=== PATIENT | male | born 1955 | race Caucasian/White ===

== ENCOUNTER → 2021-10-24 14:16 | Outpatient (BNVA) | payer MEDICARE, SELFPAY | PROVIDERS: Family Provider Nurse Practitioner Family; PCP Nurse Practitioner Family; Visit Provider Thoracic Surgery (Cardiothoracic Vascular Surgery) | DX: M79.652 Pain in left thigh (principal) | CPT/HCPCS: 99203 ==

== ENCOUNTER → 2021-11-07 10:33 | Outpatient (BNVA) | payer MEDICARE, SELFPAY | PROVIDERS: Family Provider Nurse Practitioner Family; PCP Nurse Practitioner Family; Visit Provider Orthopaedic Surgery | DX: M48.062 Spinal stenosis, lumbar region with neurogenic claudication (principal) | CPT/HCPCS: 72110; 99204 ==

== ENCOUNTER → 2021-11-20 08:56 | Outpatient (BNVA) | payer MEDICARE, SELFPAY | PROVIDERS: Family Provider Nurse Practitioner Family; PCP Nurse Practitioner Family; Visit Provider Anesthesiology Pain Medicine | DX: M48.062 Spinal stenosis, lumbar region with neurogenic claudication (principal); M47.816 Spondylosis without myelopathy or radiculopathy, lumbar region; M51.16 Intervertebral disc disorders with radiculopathy, lumbar region; M79.652 Pain in left thigh; M79.604 Pain in right leg; M79.605 Pain in left leg; Z87.891 Personal history of nicotine dependence | CPT/HCPCS: 99205 ==

== ENCOUNTER 2021-12-11 11:07 | Day surgery (SDC) | payer MEDICARE, SELFPAY ==
[2021-12-09 09:21] VITALS: BMI 26.7
--- NOTE | 2021-12-09 09:33 | ECG_ITS ---
[facility] Test Date: 2021-12-09 Pat Name: Ed Wall Department: Room: Gender: Male Billet Straightener: : 1955 Requested By: Zulema Galvan Order Number: [id number] Josh MD: Karan Gonzales M.D. Measurements Intervals Berthold Rate: 71 P: 67 NV: 153 QRS: 22 QRSD: 94 T: 46 QT: 380 QTc: 413 Interpretive Statements SINUS RHYTHM POSSIBLE RIGHT VENTRICULAR CONDUCTION DELAY [RSR (QR) IN V1/V2] Compared to ECG 11/25/2017 13:11:42 No significant changes Electronically Signed On 12-10-2021 21:18:52 CDT by Karan Gonzales M.D. [email or web address]
--- NOTE | 2021-12-09 16:08 | P.ANESASSM_ITS ---
Pre-Anesthetic Assessment Height/Weight: Height 1.8 m Weight 87.09 kg Operation Date: 12/16/21 07:00 Proposed Procedures p Lumbar Spine Decompression L3/4 L4/5 75663/64302/M48.062(Not Applicable) - Humberto Carolina DO Familial anesthetic complications: None Was Beta Thom taken within 24 hours: N/A Was Clonidine taken within 24 hours: N/A Social No alcohol and No tobacco Exam alert, oriented x 3, clear to auscultation bilaterally and regular rate & rhythm Airway Submandibular: within normal limits Cervical ROM: within normal limits Mallampati: Class I Dentition: full History/ROS No significant complaints Pulmonary None reported CV/HEM DLD Renal carcionoma s/p nephrectomy Port a cath in place Hepatic None reported GI None reported Metabolic Thyroid Disease Musc/skel Lower Back Pain and Osteoarthritis/DJD Neurogenic claudication Neuropsych Neuropathy Anesthetic Plan ASA status: 2 Anesthesia: Anesthesia Evaluation and General Other: We discussed risk and benefits of general anesthesia including PONV, sore throat (sometimes severe), corneal abrasion, positioning and peripheral nerve injuries, life threatening allergic reaction, post operative ICU admission requiring prolonged intubation, stroke, heart attack, , and rare incidences of recall. Patient consents to proceed with general anesthesia. Risk of > 500 ml blood loss (7ml/kg in children): No Medications/Allergies Home Medications Medication Instructions Recorded Confirmed Last Taken Type simvastatin 40 mg tablet 40 mg PO DAILY 10/24/21 12/09/21 Unknown History levothyroxine 125 mcg tablet 125 mcg PO DAILY 12/09/21 12/09/21 Unknown History Allergies Allergy/AdvReac Type Severity Reaction Status Date / Time No Known Allergies Allergy Verified 11/20/21 10:05 [facility] Anesthesia Family History Brother CAD (coronary artery disease) Sister Cancer Denies family history of Diabetes Hypertension Stroke Social History Smoking and tobacco status: former smoker Quit status (tobacco): has quit using tobacco Former quit date comment: 2 PPD x 45 yrs Second hand smoke exposure: Yes Alcohol intake: never Adopted: No Lives independently: Yes Household members: spouse Housing: House Marital status: Current occupational status: retired 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
--- NOTE | 2021-12-11 | XR_ITS ---
WS: [id number] Lumbar spine, C-arm fluoroscopy, 12/11/2021 Clinical Data: decompression l3/l4 l4/l5 decompression Comparison: None. Findings: Dr. Carolina performed an L3-4 and L4-5 lumbar decompression. XR/XR lumbar spine 1V [id number] Impression: Lumbar decompression.
--- NOTE | 2021-12-11 | SCC_ITS ---
Procedure done: 1. L3/4 laminectomy with partial facetectomy 2. L4/5 laminectomy with partial facetetomy 16.7 seconds of fluoroscopic guidance, for a cumulative dose of 6.76 mGy, was provided to Dr. Carolina by the radiology department. C-arm images of the lumbar spine were saved for the patient's permanent record. [facility]
[2021-12-11 11:58] VITALS: BP 129/82; PULSE 73; RESP 16; TEMP 36.4; O2SAT 98
[2021-12-11] MEDS: sodium chloride 0.9% 1,000 ML 30 ML IV (12:12)
--- NOTE | 2021-12-11 12:28 | PM.HP ---
Providers/Chief Complaint Primary Care Provider: LINDA Khanna Chief Complaint: L3/4 L4/5 DECOMPRESSION [id number] / m48.062 History of Present Illness Bryant Wall is a 65 year old male patient here for evaluation of lower back pain and left hip pain. He rates his pain 10 at todays visit. He states he has had pain over the years that has gradually gotten worse. He has a history of previous right hip replacement. He explains his lower back pain radiates into his left hip, and left anterior leg. He has tried injections in the past with no relief. Chief Complaint:lower back pain Onset: Years ago, from work Duration:Constant, daily Characteristics:Aching, stabbing, cramping Severity: 12/18 Location:Lumbar region, Left hip, anterior left leg Radiating symptoms:radiates into left hip/anterior left leg Aggravating factors:any movement/activity for extended periods at a time. Alleviating factors:Leaning back in recliner Neuro deficits: Reports numbness, tingling in right leg. Reports weakness in both legs. Denies incontinence of bowel/bladder, saddle anesthesia. Prior tx:?hx of right hip replacement, Injection in lower back and right hip. Review of Systems General: Reports: 10 or more systems reviewed and unremarkable except in HPI and below Const: Reports: body aches, fatigue and malaise; Denies: fever(s) Eyes: Denies: change in vision or eye discharge ENMT: Denies: throat pain or uvular edema Card: Denies: chest pain or palpitations Resp: Denies: dyspnea or productive cough GI: Denies: nausea or vomiting : Denies: urinary incontinence Musc: Reports: back pain and extremity pain Skin/Breast: Denies: rash or pruritus Neuro: Reports: numbness in extremities and weakness in extremities Psych: Denies: anxiety or depression Endo: Denies: polyuria Doug/Lymph: Denies: easy bruising All/Imm: Denies: facial swelling Medications/Allergies Home Medications Medication Instructions Recorded Confirmed Last Taken Type simvastatin 40 mg tablet 40 mg PO DAILY 10/24/21 12/11/21 12/10/21 History levothyroxine 125 mcg tablet 125 mcg PO DAILY 12/09/21 12/11/21 12/11/21 History Allergies Allergy/AdvReac Type Severity Reaction Status Date / Time No Known Allergies Allergy Verified 11/20/21 10:05 PFSH Acute PFSH: Family History Brother CAD (coronary artery disease) Sister Cancer Denies family history of Diabetes Hypertension Stroke Social History Smoking and tobacco status: former smoker Quit status (tobacco): has quit using tobacco Former quit date comment: 2 PPD x 45 yrs Second hand smoke exposure: Yes Alcohol intake: never Adopted: No Lives independently: Yes Household members: spouse Housing: House Marital status: 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 GENERAL: Patient in no acute distress. CARDIAC: Regular rate and rhythm. CHEST: Normal inspiratory effort, normal respiratory rate. ABDOMEN: Soft and nontender. SKIN: Clear, warm and intact. NEURO?PSYCH: The patient is alert and oriented to person, place and time. Sensorv /SILT Motor StrengthShoulder abduction C5 5/5Wrist extension C6 5/5Elbow extension C7 5/5Hand Cold Press Loader C8 5/5Finger abduction T15/5 Radial/ Ulnar/ Median n intact LowerSensory (SILT)Motor StrengthHin flexion L2/3Ant/inner thigh 5/5Hip adduction L2/3 5/5Knee extension L4 Lat thigh, 5/5Toe dorsiflexion L5 5/5Ankle dorsiflexion L5/ S82Kvgebvt flexion S1 5/5 DTRBleeps 2+Triceps 2+Brachioradialis 2+Patellar 2+Achilles 2+ MUSCULOSKELETAL: [] UPPEREXTREMITIES: The patient had full active ROM in fingers, wrist, elbow, and shoulder. The patient demonstrated ability to fully flex/extend/abduct/adduct fingers, make ok sign, cross 2nd/3rd digits, extend 1st digit fully.. Radial pulse 2+, CR<2 seconds. LOWER EXTREMITIES: Pt has full, active ROM of toes, ankle, knee, and hip. Dorsalis pedis/posterior tibialis pulses 2+, CR<2 seconds. SPINE: Skin warm, dry, intact. A&P Assessment and plan (1) Lumbar stenosis with neurogenic claudication: L3/4 and L4/5 Left side laminectomy with partial facetectomy Status: Acute Attestations Medical Necessity Statement*: failed conservative tx Coding Level of Care Code Acute Resource Efficiency Manager for Chg Fwd Diagnoses Lumbar stenosis with neurogenic claudication M48.062
--- NOTE | 2021-12-11 12:58 | P.ANESUD_ITS ---
Pre-Anesthetic Update Pre-Anesthetic Assessment: Date of Surgery/Procedure: 12/11/21 Preop Cierra gnosis: Lumbar radiculopathy Proposed Procedure: Operation Date: 12/11/21 12:45 Proposed Procedures p Lumbar Spine Decompression L3/4 L4/5 85012/90716/M48.062(Not Applicable) - Humberto Carolina, DO Any changes to Pre-Anesthetic Assessment?: No Last Intake: Intake Last Liquid Date 12/10/21 Last Liquid Time 22:00 Last Solid Date 12/10/21 Last Solid Time 22:00 Vitals: Temperature 97.6 F 12/11/21 11:58 Temperature Source Temporal Artery S can 12/11/21 11:58 Pulse Rate 73 12/11/21 11:58 Respiratory Rate 16 12/11/21 11:58 Blood Pressure 129/82 12/11/21 11:58 Blood Pressure Margie n 97 12/11/21 11:58 Pulse Oximetry 98 12/11/21 11:58 Oxygen Delivery Me thod 12/11/21 11:58 Exam: Pre-Anes Outpt Exam: alert, oriented x 3, clear to auscultation bilaterally and regular rate & rhythm Cardiac Studies: No Data to Display
[2021-12-11] MEDS: ceFAZolin 2,000 MG in sodium chloride 0.9% (plus) 50 ML 100 MG IV (14:15)
[2021-12-11 15:26] VITALS: BP 132/82; PULSE 83; RESP 14; TEMP 36.1; O2SAT 99
[2021-12-11 15:31] VITALS: BP 126/75; PULSE 77; RESP 16; O2SAT 100
--- NOTE | 2021-12-11 15:39 | P.OP_ITS ---
Operative Report Date of procedure: December 11, 2021 Pre-op diagnosis: Preop Diagnosis Lumbar radiculopathy Post-op diagnosis: same Procedure done: 1. L3/4 laminectomy with partial facetectomy 2. L4/5 laminectomy with partial facetetomy Surgeon: Humberto Carolina Professor Of Poultry Science: Ulisses Win Professor Of Poultry Science: The manager surgical, Ulisses Win, PAC was needed for his expertise under the microscope. He was important and necessary throughout the procedure to complete in a safe and timely manner. He assisted with patient positioning prepping and draping tissue retraction suctioning of the operative field protection of the dural sac and tissue closure Estimated blood loss (mL): 5 Procedure: 1. L3/4 laminectomy with partial facetectomy 2. L4/5 laminectomy with partial facetetomy Patient is brought to the operative suite. After undergoing anesthesia they are placed in the prone position. All areas of impingement are well padded. Patient is then prepped and draped in the normal sterile fashion. A skin incision is made over the L4-5 level. This is confirmed under c-arm guidance. A series of dilators are passed and the tubular retractor is docked on the L4 lamina. A bovie is used to clear the soft tissue off the lamina and the L 4/5 facet joint. A high speed hayden is then used to perform the laminectomy and take down the medial aspect of the L 4/5 facet joint. A kerrison rongeure was then used to take down the remaining lamina and smooth the edge of the laminectomy up to the point where the ligamentum flavum attaches. Attention was then brought to the medial aspect of the facet joint. The remaining medial aspect of the superior and inferior aspect of the facet joint were taken down with the kerrison from the pedicle of L4 to L 5. The facet joint had significant hypertrophy. Attention was then brought to the Ligamentum Flavum. The ligament was taken down from the lamina of L4 to L5 and out medially to the remaining facet joint. The ligament was thick. The dura was then exposed. The dura was in good repair. The L4 nerve was then traced with a curette out the L4/5 foramen and found to be adequately decompressed. The L5 nerve was traced with a curette around the L5 pedicle. The lateral recess was opened with a kerrison helping to further decompress the L5 nerve. A skin incision is made over the L3/4 level. This is confirmed under c-arm guidance. A series of dilators are passed and the tubular retractor is docked on the L3 lamina. A bovie is used to clear the soft tissue off the lamina and the L 3/4 facet joint. A high speed hayden is then used to perform the laminectomy and take down the medial aspect of the L 3/4 facet joint. A kerrison rongeure was then used to take down the remaining lamina and smooth the edge of the laminectomy up to the point where the ligamentum flavum attaches. Attention was then brought to the medial aspect of the facet joint. The remaining medial aspect of the superior and inferior aspect of the facet joint were taken down with the kerrison from the pedicle of L3 to L 4. The facet joint had significant hypertrophy. Attention was then brought to the Ligamentum Flavum. The ligament was taken down from the lamina of L3 to L4 and out medially to the remaining facet joint. The ligament was thick. The dura was then exposed. The dura was in good repair. The L3 nerve was then traced with a curette out the L3/4 foramen and found to be adequately decompressed. The L4 nerve was traced with a curette around the L4 pedicle. The lateral recess was opened with a kerrison helping to further decompress the L4 nerve. Wound is then irrigated copiously with saline and surgiflo is used to stop any bleeding. The tubular retractor is removed and the wound is closed with vicryl and monocryl suture. Glue is then used to protect the wound. A sterile dressing is then placed. Patient was then placed in the supine position and transferred to the PACU in stable condition.
[2021-12-11 15:41] VITALS: BP 132/78; PULSE 89; RESP 18; TEMP 36.1; O2SAT 96
[2021-12-11 16:00] VITALS: BP 110/75; PULSE 77; RESP 18; TEMP 36.3; O2SAT 98
== END 2021-12-11 16:30 | disposition home or self-care (01) ==
PROVIDERS: PCP Nurse Practitioner Family; Visit Provider Orthopaedic Surgery
PROC: (CPT 63005; principal; 2021-12-11 12:45)
DX: M48.062 Spinal stenosis, lumbar region with neurogenic claudication (principal); Z85.528 Personal history of other malignant neoplasm of kidney; Z90.5 Acquired absence of kidney; Z87.891 Personal history of nicotine dependence
CPT/HCPCS: 63047; 63048; 72020; 76000; 93005; J1100; J2405; J2704; J2710; J3010; J3490; J7030

== ENCOUNTER → 2022-01-02 12:59 | Outpatient (BNVA) | payer MEDICARE, SELFPAY | PROVIDERS: PCP Nurse Practitioner Family; Visit Provider Orthopaedic Surgery | DX: Z47.89 Encounter for other orthopedic aftercare (principal) | CPT/HCPCS: 99024 ==

== ENCOUNTER → 2022-02-06 08:06 | Outpatient (BNVA) | payer MEDICARE, SELFPAY | PROVIDERS: PCP Nurse Practitioner Family; Visit Provider Orthopaedic Surgery | DX: Z47.89 Encounter for other orthopedic aftercare (principal) | CPT/HCPCS: 99024 ==

== ENCOUNTER 2022-03-19 06:00 | Outpatient (RCR) | payer MEDICARE, SELFPAY | END 2022-04-09 23:59 | disposition home or self-care (01) | LOC: TPT 06:00 | PROVIDERS: PCP Nurse Practitioner Family; Visit Provider Orthopaedic Surgery | DX: Z98.890 Other specified postprocedural states (principal) | CPT/HCPCS: 97110; 97163 ==

== ENCOUNTER → 2022-03-20 08:02 | Outpatient (BNVA) | payer MEDICARE, SELFPAY | PROVIDERS: PCP Nurse Practitioner Family; Visit Provider Orthopaedic Surgery | DX: M48.062 Spinal stenosis, lumbar region with neurogenic claudication (principal) | CPT/HCPCS: 99213 ==

== ENCOUNTER 2022-04-10 06:00 | Outpatient (RCR) | payer MEDICARE, SELFPAY | END 2022-05-06 23:59 | disposition home or self-care (01) | LOC: TPT 06:00 | PROVIDERS: PCP Nurse Practitioner Family; Visit Provider Orthopaedic Surgery | DX: Z98.890 Other specified postprocedural states (principal) | CPT/HCPCS: 97110; 97140 ==

== ENCOUNTER 2022-04-30 01:00 | Outpatient (CLI) | payer MEDICARE, SELFPAY | END 2022-04-30 23:00 | LOC: RAD 06-10 15:19 | PROVIDERS: PCP Nurse Practitioner Family; Visit Provider Registered Nurse General Practice | DX: M16.12 Unilateral primary osteoarthritis, left hip (principal); M79.652 Pain in left thigh | CPT/HCPCS: 73502; 99214 ==

== ENCOUNTER 2022-04-30 11:27 | Outpatient (CLI) | payer MEDICARE, SELFPAY ==
--- NOTE | 2022-04-30 11:35 | CT_ITS ---
WS: [id number] CT CHEST, ABDOMEN AND PELVIS NONCONTRAST HISTORY: MALIGNANT NEOPLASM OF LEFT Kidney, except RENAL PELVIS TECHNIQUE: Contiguous 5 mm axial imaging performed through the chest, abdomen and pelvis without IV c ontrast, oral contrast has been provided. Coronal and sagittal reformats chest. Coronal and sagittal reformats through the abdomen and pelvis. All CT scans at [facility] use at least one of thes e dose optimization techniques: automated exposure control; mA and/or kV adjustment per patient size (includes targeted exams where dose is matched to clinical indication); or iterative reconstruction. CONTRAST: None DLP: 1327.16 mGy.cm COMPARISON: Chest CT 01/25/[address]: Hyperinflated lungs. No pulmonary nodule or mass. Intrapulmonary lymph node along the LEFT major fissure unchanged since 2018 and measures 3 mm. Mild atherosclerosis aorta. No aneurysm. Normal size pulmonary artery. No adenopathy. Abdomen CT: Unenhanced imaging of the liver, spleen and gallbladder are negative for acute process. T here are a few splenic granulomata. 2 mm calcification in the neck of the gallbladder. No adjacent in flammation or entrapment. Normal pancreas. No adrenal mass. Atherosclerosis aorta with no aneurysm. Prior LEFT nephrectomy. No recurrent mass in the renal bed. RIGHT kidney normal size measuring 11.1 c m. There are several small parapelvic cysts in the central kidney. No obstruction or calyceal dilatat ion. No mass identified on this unenhanced exam. Negative stomach. No small bowel obstruction. Normal appendix. A few scattered diverticula in the dis sis colon without acute diverticulitis. No adenopathy or ascites. Pelvic CT: Well-distended urinary bladder. Prostate gland calcifications. No free fluid or adenopathy in the pelvis. RIGHT hip arthroplasty. Lumbar scoliosis. CT/[place] [id number] IMPRESSION: 1. Status post LEFT nephrectomy. 2. No recurrent mass in the renal bed. 3. Unenhanced imaging of the RIGHT kidney is negative. No obstruction or mass. 4. 2 mm calcification the neck of the gallbladder. 5. Chronic emphysema. No metastatic pulmonary nodule or mass.
[2022-04-30] MEDS: iohexol 350 mg/mL 500 mL Btl (per mL) PO (11:46)
[2022-04-30 12:29] LABS: Basophils % 0.3 %; Eosinophils % 0.5 %; Hematocrit 45.5 % (42.0-52.0); Lymphocytes # 1.2 10^3/uL (0.8-4.8); Lymphocytes % 15.9 %; Mean Corpuscular Hemoglobin 31.3 pg (28.0-34.0); Mean Platelet Volume 9.1 fL (7.4-10.4); Monocytes # 0.5 10^3/uL (0.2-0.9); Monocytes % 6.6 %; Neutrophils # 5.84 10^3/uL (1.8-7.7); Neutrophils % 76.2 %; Nucleated Red Blood Cells % 0 %; Platelet Count 315 10^3/cmm (130-400); Red Blood Count 4.79 10^6/uL (4.1-5.3); Red Cell Distribution Width 13.3 % (12.1-15.1); White Blood Count 7.7 10^3/uL (4.0-10.0)
[2022-04-30 12:54] LABS: Alanine Aminotransferase 10 U/L (0-41); Albumin Level 4.2 g/dL (3.5-5.2); Alkaline Phosphatase 102 U/L (40-130); Anion Gap 13.5 (5-19); Aspartate Amino Transferase 13 U/L (0-40); Blood Urea Nitrogen 18 mg/dL (8-23); Calcium 9.8 mg/dL (8.5-10.5); Carbon Dioxide 27 mmol/L (22-29); Chloride 101 mmol/L (98-107); Globulin 2.7 g/dL (1.3-4.6); Glomerular Filtration Rate 60.4 mL/min (90-130); Glucose 107 mg/dL (65-115); Osmolality Calculated 286 mOsm/kg (285-295); Potassium 4.5 mmol/L (3.5-5.1); Sodium 137 mmol/L (136-145); Total Bilirubin 0.3 mg/dL (0.15-1.2); Total Protein 6.9 g/dL (6.6-8.7)
== END 2022-04-30 11:28 | disposition home or self-care (01) ==
PROVIDERS: PCP Nurse Practitioner Family; Visit Provider Internal Medicine
DX: C64.2 Malignant neoplasm of left kidney, except renal pelvis (principal); Z90.5 Acquired absence of kidney; K82.8 Other specified diseases of gallbladder; J43.9 Emphysema, unspecified
CPT/HCPCS: 36415; 71250; 74176; 80053; 85025; Q9967

== ENCOUNTER 2022-11-10 12:41 | Outpatient (CLI) | payer MEDICARE, SELFPAY ==
--- NOTE | 2022-11-10 12:52 | CT_ITS ---
WS: [id number] CT CHEST, ABDOMEN AND PELVIS NONCONTRAST. HISTORY: GROSS HEMATURIA, history of LEFT renal cancer. TECHNIQUE: Contiguous 5 mm axial imaging performed through the chest, abdomen and pelvis without IV c ontrast, oral contrast has not been provided. Coronal and sagittal reformats chest. Coronal and sagit sis reformats through the abdomen and pelvis. All CT scans at [facility] use at least one of these dose optimization techniques: automated exposure control; mA and/or kV adjustment per patient s ize (includes targeted exams where dose is matched to clinical indication); or iterative reconstructi on. CONTRAST: None DLP: 865.36 mGy.cm COMPARISON: CT 04/30/2022. Chest CT: No pulmonary mass or nodule. There are a few scattered granulomata which are stable. No per icardial or pleural effusions. Mild atherosclerosis aorta. Normal size pulmonary artery. Suspect mode rate coronary artery calcification. Small hiatal hernia. No destructive rib lesions. Mild thoracic sp ondylosis. Abdomen CT: Unenhanced imaging of the visceral organs submitted. Liver is normal size. No mass or kavon e duct dilatation is evident. Normally distended gallbladder with cholelithiasis. No acute cholecysti tis. Normal spleen. No adrenal mass. Normal pancreas. Moderate atherosclerosis abdominal aorta with n o aneurysm. Prior LEFT nephrectomy. There is no recurrent mass in the renal bed. Normal size RIGHT kidney. Small parapelvic cysts. No renal mass or calcifications identified on this unenhanced study. Well-distended stomach. No small bowel obstruction. Diffuse constipation. Appendix is not identified. Moderate distal diverticular disease without acute diverticulitis. Pelvic CT: Normally distended urinary bladder. Portions of the bladder are obscured by significant be am hardening artifact secondary to bilateral hip prostheses. No free fluid. No adenopathy. Bilateral hip prostheses. Advanced degenerative rotoscoliosis lumbar spine with asymmetric disc space narrowing. CT/[place] [id number] IMPRESSION: 1. Status post LEFT nephrectomy. No recurrent mass in the renal bed. 2. Nonobstructed RIGHT kidney. No abnormality seen on this unenhanced exam. 3. No adenopathy. 4. Cholelithiasis without acute cholecystitis. 5. No pulmonary mass or pneumonia. 6. Portions of the urinary bladder are obscured by beam hardening artifact fro m the hip prostheses. Ultrasound evaluation may be helpful of the urinary bladd er if there is gross hematuria.
== END 2022-11-10 12:42 | disposition home or self-care (01) ==
PROVIDERS: PCP Internal Medicine; Visit Provider Internal Medicine
DX: K80.20 Calculus of gallbladder without cholecystitis without obstruction (principal); Z90.5 Acquired absence of kidney
CPT/HCPCS: 71250; 74176

== ENCOUNTER 2023-05-12 07:30 | Outpatient (CLI) | payer MEDICARE, SELFPAY ==
--- NOTE | 2023-05-12 07:40 | CTR_ITS ---
PROCEDURE INFORMATION: Exam: CT Chest Without Contrast; Diagnostic Exam date and time: 05/12/2023 9:03 AM Age: 67 years old Clinical indication: Condition or disease; Kidney, left; Other: Kidney cancer; Prior surgery; Surgery date: 6+ months; Surgery type: Left kidney, lymph nodes, bilat hips; Additional info: Malignant neoplasm of L kidney, except renal pelvis/hematuria TECHNIQUE: Imaging protocol: Diagnostic computed tomography of the chest without contrast. Radiation optimization: All CT scans at this facility use at least one of these dose optimization techniques: automated exposure control; mA and/or kV adjustment per patient size (includes targeted exams where dose is matched to clinical indication); or iterative reconstruction. COMPARISON: [place] [id number] 11/10/2022 1:10 PM RADIATION DOSE METRICS: Total DLP (mGy-cm): 832.09 FINDINGS: Thyroid: No significant thyroid pathology. Lungs: See Bones/joints finding. Pleural spaces: No pleural effusion. Single pleural calcification seen in the left lower chest inferomedially. No evidence of soft tissue nodule associated with this.Coronary artery calcifications. Heart: Unremarkable. No cardiomegaly. No pericardial effusion. Coronary arteries: See Pleural spaces finding. Lymph nodes: No enlarged nodes by criteria. Stable borderline sized AP window lymph nodes measuring up to 1 cm short axis. Vasculature: No abdominal aortic aneurysm. Bones/joints: Stable multangular 4 mm left perifissural nodule series 6, image 34 likely representing lymph node. Interval appearance of new areas ground-glass opacity the right lung apex posteriorly with component of a single 5 mm nodule within 1 of the ground-glass opacities on series 6, image 16. There is mild cylindrical bronchiectasis in the left lower lobe. No significant bony pathology. Soft tissues: See Pleural spaces finding. PROCEDURE INFORMATION: Exam: CT Abdomen And Pelvis Without Contrast Exam date and time: 05/12/2023 9:03 AM Age: 67 years old Clinical indication: Condition or disease; Kidney, left; Other: Kidney cancer; Prior surgery; Surgery date: 6+ months; Surgery type: Left kidney, lymph nodes, bilat hips; Additional info: Malignant neoplasm of L kidney, except renal pelvis/hematuria TECHNIQUE: Imaging protocol: Computed tomography of the abdomen and pelvis without contrast. Radiation optimization: All CT scans at this facility use at least one of these dose optimization techniques: automated exposure control; mA and/or kV adjustment per patient size (includes targeted exams where dose is matched to clinical indication); or iterative reconstruction. COMPARISON: [place] [id number] 11/10/2022 1:10 PM RADIATION DOSE METRICS: Total DLP (mGy-cm): 832.09 FINDINGS: Lungs: Visualized lung bases are free of significant pathology. Liver: Fatty change of the liver. Gallbladder and bile ducts: Cholelithiasis. No biliary dilatation. Pancreas: No significant pancreatic pathology. Spleen: No significant splenic pathology. Adrenal glands: No significant adrenal pathology. Kidneys and ureters: No significant right renal pathology. Prior left nephrectomy. Stomach and bowel: Large amount of colonic stool. Diverticulosis. Appendix: No appendiceal pathology evident. Intraperitoneal space: No ascites. Vasculature: No abdominal aortic aneurysm. Lymph nodes: No enlarged nodes by criteria. Urinary bladder: Bladder wall thickening. Reproductive: Moderate prostatomegaly. Bones/joints: Partial obscuration of pelvic anatomy by artifact rising from hip replacement. Moderate degenerative change present in the spine. No bony metastasis evident. Soft tissues: Small fat containing ventral hernia.Tiny fat containing umbilical hernia. Moderate right and small left fat containing inguinal hernias. CT/[place] chest [place] [id number] IMPRESSION: Interval appearance mild adjacent ground-glass opacities of the right upper lobe with single 5 mm nodule in a pattern most suggestive of inflammatory change. Given history of malignancy, three-month follow-up recommended for surveillance. IMPRESSION: 1. No evidence of abdominopelvic metastatic disease. 2. Stable minor findings including cholelithiasis and fatty infiltration of the liver.
[2023-05-12 09:11] LABS: Basophils % 0.4 %; Eosinophils # 0.1 10^3/uL (0.0-0.8); Eosinophils % 0.9 %; Hematocrit 46.8 % (37-53); Lymphocytes # 1.5 10^3/uL (0.8-4.8); Lymphocytes % 14.6 %; Mean Corpuscular HGB Conc 32.9 g/dL (30-55); Mean Corpuscular Hemoglobin 31.8 pg (27-33); Mean Corpuscular Volume 96.5 fl (82-101); Mean Platelet Volume 8.9 fL (7.4-10.4); Monocytes # 0.7 10^3/uL (0.2-0.9); Monocytes % 6.5 %; Neutrophils # 7.85 10^3/uL (1.8-7.7); Neutrophils % 77.1 %; Nucleated Red Blood Cells % 0 %; Platelet Count 281 10^3/cmm (157-399); Red Blood Count 4.85 10^6/uL (3.85-5.65); Red Cell Distribution Width 13.4 % (12.1-15.1); White Blood Count 10.17 10^3/uL (3.29-11.43)
[2023-05-12 09:25] LABS: Alanine Aminotransferase 15 U/L (0-41); Albumin Level 4.1 g/dL (3.5-5.2); Alkaline Phosphatase 99 U/L (40-130); Anion Gap 15.4 (5-19); Aspartate Amino Transferase 14 U/L (0-40); Blood Urea Nitrogen 22 mg/dL (8-23); Calcium 9.1 mg/dL (8.5-10.5); Carbon Dioxide 26 mmol/L (22-29); Chloride 100 mmol/L (98-107); Globulin 3.6 g/dL (1.3-4.6); Glomerular Filtration Rate 60.2 mL/min (90-130); Glucose 113 mg/dL (65-115); Osmolality Calculated 288 mOsm/kg (285-295); Potassium 4.4 mmol/L (3.5-5.1); Sodium 137 mmol/L (136-145); Total Bilirubin 0.5 mg/dL (0.15-1.2); Total Protein 7.7 g/dL (6.6-8.7)
== END 2023-05-12 07:31 | disposition home or self-care (01) ==
PROVIDERS: PCP Internal Medicine; Visit Provider Internal Medicine
DX: C64.2 Malignant neoplasm of left kidney, except renal pelvis (principal); R31.0 Gross hematuria; K80.20 Calculus of gallbladder without cholecystitis without obstruction; K76.0 Fatty (change of) liver, not elsewhere classified
CPT/HCPCS: 36415; 71250; 74176; 80053; 85025

== ENCOUNTER 2023-08-11 11:19 | Outpatient (CLI) | payer MEDICARE, SELFPAY ==
--- NOTE | 2023-08-11 11:30 | CTR_ITS ---
PROCEDURE INFORMATION: Exam: CT Chest Without Contrast; Diagnostic Exam date and time: 08/11/2023 12:18 PM Age: 67 years old Clinical indication: Condition or disease; Other: Kidney cancer; Prior surgery; Surgery date: 6+ months; Surgery type: Bilat hip, left kidney; Additional info: Gross hematuria/malignant neoplasm of L kidney L renal pel TECHNIQUE: Imaging protocol: Diagnostic computed tomography of the chest without contrast. Radiation optimization: All CT scans at this facility use at least one of these dose optimization techniques: automated exposure control; mA and/or kV adjustment per patient size (includes targeted exams where dose is matched to clinical indication); or iterative reconstruction. COMPARISON: [place] [id number] 05/12/2023 9:03 AM RADIATION DOSE METRICS: Total DLP (mGy-cm): 910.18 FINDINGS: Thyroid: No significant thyroid pathology. Lungs: Calcified pulmonary granulomata are present. Near-complete interval resolution right apical ground-glass opacities seen on the prior exam with minimal residual abnormality currently seen on series 5, image 13. Interval resolution of right apical nodule seen on prior study. Interval appearance of a subtle area of clustered micronodularity and ground-glass at the left lung apex on series 5 images 9 through 12. Stable 4 mm left perifissural nodule on series 5, image 33 most likely representing lymph node. Mild cylindrical bronchiectasis left lower lobe again seen. Stable solitary subpleural calcification left lower chest series 5, image 57. Pleural spaces: No pleural effusion. Heart: Unremarkable. No cardiomegaly. No pericardial effusion. Coronary arteries: Coronary artery calcifications. Lymph nodes: Stable borderline sized AP window lymph node measuring up to 1 cm short axis; no enlarged nodes by criteria. Vasculature: No evidence of thoracic aortic aneurysm. Bones/joints: Mild degenerative change present in the spine. No bony metastasis evident. Soft tissues: Unremarkable. PROCEDURE INFORMATION: Exam: CT Abdomen And Pelvis Without Contrast Exam date and time: 08/11/2023 12:18 PM Age: 67 years old Clinical indication: Condition or disease; Other: Kidney cancer; Prior surgery; Surgery date: 6+ months; Surgery type: Bilat hip, left kidney; Additional info: Gross hematuria/malignant neoplasm of L kidney L renal pel TECHNIQUE: Imaging protocol: Computed tomography of the abdomen and pelvis without contrast. Radiation optimization: All CT scans at this facility use at least one of these dose optimization techniques: automated exposure control; mA and/or kV adjustment per patient size (includes targeted exams where dose is matched to clinical indication); or iterative reconstruction. COMPARISON: [place] [id number] 05/12/2023 9:03 AM RADIATION DOSE METRICS: Total DLP (mGy-cm): 910.18 FINDINGS: Lungs: Visualized lung bases are free of significant pathology. Liver: No significant liver pathology. Gallbladder and bile ducts: Cholelithiasis. No biliary dilatation. Pancreas: No significant pancreatic pathology. Spleen: No significant splenic pathology. Adrenal glands: No significant adrenal pathology. Kidneys and ureters: Right kidney remarkable for unchanged parapelvic cysts. Prior left nephrectomy. No residual or recurrent neoplasm left renal fossa. Stomach and bowel: No significant pathology. Appendix: Appendix within normal limits. Intraperitoneal space: No ascites. Vasculature: No abdominal aortic aneurysm. Lymph nodes: No evidence of lymphadenopathy. Urinary bladder: Mild bladder wall thickening. Reproductive: Moderate prostatomegaly. Bones/joints: Partial obscuration of pelvic anatomy by artifact rising from bilateral hip replacements. Moderate degenerative change present in the spine. Soft tissues: Small fat containing ventral hernia. Moderate fat containing right inguinal hernia. Small fat containing left inguinal hernia. CT/[place] [id number] IMPRESSION: 1. Interval resolution of right apical 5 mm nodule and right apical ground-glass opacities. Interval appearance of new clustered left apical micronodularity and mild ground-glass opacity in a pattern most suggestive of infectious/inflammatory pathology. Although felt to be unlikely related metastatic disease, three-month follow-up could be performed for surveillance. 2. Other minor thoracic findings are stable as detailed above. IMPRESSION: No evidence of recurrent neoplasm or significant interval change. Stable minor findings including cholelithiasis as described above.
== END 2023-08-11 11:20 | disposition home or self-care (01) ==
LOC: RAD 11:20
PROVIDERS: PCP Internal Medicine; Visit Provider Internal Medicine
DX: R31.0 Gross hematuria (principal); C64.2 Malignant neoplasm of left kidney, except renal pelvis; K80.20 Calculus of gallbladder without cholecystitis without obstruction; R91.1 Solitary pulmonary nodule
CPT/HCPCS: 71250; 74176

== ENCOUNTER 2024-01-05 12:36 | Outpatient (CLI) | payer MEDICARE, SELFPAY ==
--- NOTE | 2024-01-05 12:46 | CT_ITS ---
WS: [id number] CT CHEST, ABDOMEN AND PELVIS WITHOUT CONTRAST HISTORY: HX OF MALIGNANT NEOPLASM OF L KIDNEY TECHNIQUE: Contiguous 5 mm axial imaging performed through the chest, abdomen and pelvis without IV c ontrast, oral contrast has been provided. Coronal and sagittal reformats chest. Coronal and sagittal reformats through the abdomen and pelvis. All CT scans at [facility] use at least one of thes e dose optimization techniques: automated exposure control; mA and/or kV adjustment per patient size (includes targeted exams where dose is matched to clinical indication); or iterative reconstruction. CONTRAST: None DLP: 936.91 mGy.cm COMPARISON: 08/11/2023, 05/12/[address]: Very slight hyperexpansion of the lungs. Interval resolution groundglass opacification and nodule RIGHT upper lobe. Stable 4 mm LEFT perifissural nodule. Benign granuloma RIGHT middle lobe. No pulmonary mass or enlarging nodule. Mild atherosclerosis normal size aorta. Normal size pulmonary ar darcy. Moderate coronary artery calcifications. Normal size heart. No adenopathy identified on this un enhanced exam. There are a few small mediastinal and hilar lymph nodes. Some of these lymph nodes con tain calcification. Small amount of contrast in the distal esophagus. Chest wall is negative. Abdomen CT: Unenhanced liver, spleen, gallbladder and pancreas are unchanged. Common bile duct appear s normal size. No adrenal mass. Mild perinephric stranding surrounding the RIGHT kidney. There are a few small parapelvic cysts centr ally. No mass identified on this unenhanced exam. Prior RIGHT nephrectomy. Surgical clips in the clinton l bed but no recurrent mass. Moderate atherosclerosis aorta. Focal calcifications extend into the mesenteric arteries. Normally distended stomach. No small bowel obstruction. Normal appendix. Minimal distal colonic diver ticulosis. Pelvic CT: Good distention of the urinary bladder. There is no free fluid or adenopathy in the pelvis . No filling defect identified in the urinary bladder on this unenhanced exam. Bilateral hip prostheses are causing artifact through the pelvis. No destructive or expansile bone le sions are identified. CT/[place] [id number] IMPRESSION: 1. Status post LEFT nephrectomy. No recurrent mass in the renal bed. 2. Interval complete resolution groundglass opacification with nodule RIGHT up per lobe. No new pulmonary mass or opacifications. 3. No ascites. 4. No adenopathy identified on this unenhanced exam. 5. Moderate atherosclerosis thoracic and abdominal aorta is. 6. No bone destruction.
[2024-01-05] MEDS: iohexol 350 mg/mL 500 mL Btl (per mL) PO (13:16)
== END 2024-01-05 12:37 | disposition home or self-care (01) ==
LOC: RAD 12:36
PROVIDERS: PCP Internal Medicine; Visit Provider Internal Medicine
DX: R31.0 Gross hematuria (principal); C64.2 Malignant neoplasm of left kidney, except renal pelvis; R91.8 Other nonspecific abnormal finding of lung field; I25.84 Coronary atherosclerosis due to calcified coronary lesion; Z90.5 Acquired absence of kidney; I70.0 Atherosclerosis of aorta; Z96.643 Presence of artificial hip joint, bilateral
CPT/HCPCS: 71250; 74176; Q9967

== ENCOUNTER 2024-07-07 13:19 | Outpatient (CLI) | payer MEDICARE, SELFPAY ==
--- NOTE | 2024-07-07 13:27 | CTR_ITS ---
PROCEDURE INFORMATION: Exam: CT Chest Without Contrast; Diagnostic Exam date and time: 07/07/2024 2:40 PM Age: 68 years old Clinical indication: Condition or disease; Other: Lung nodules; Lung condition and disease; Pulmonary nodule, solitary; Primary cancer: Renal; Prior surgery; Surgery date: 6+ months; Surgery type: Bilat hips, left kidney; Additional info: Lung nodules, kidney cancer TECHNIQUE: Imaging protocol: Diagnostic computed tomography of the chest without contrast. Radiation optimization: All CT scans at this facility use at least one of these dose optimization techniques: automated exposure control; mA and/or kV adjustment per patient size (includes targeted exams where dose is matched to clinical indication); or iterative reconstruction. COMPARISON: [place] [id number] 01/05/2024 1:35 PM RADIATION DOSE METRICS: Total DLP (mGy-cm): 924.54 FINDINGS: Trachea: Airways are patent. Lungs: Calcified granulomas throughout the lungs are benign. Bilateral apical capping/scarring. No consolidations. Scattered benign intrapulmonary lymph nodes. No concerning lung nodules. Pleural spaces: No pleural effusions or pneumothorax. Heart: Calcifications of the aortic valve annulus. No cardiomegaly. No pericardial thickening or effusion. Coronary arteries: There is mild atherosclerotic calcification of the coronary arteries. Mediastinal space: Scattered calcified granulomas throughout the mediastinum are benign. Lymph nodes: There is no evidence of lymphadenopathy. Vasculature: Mild diffuse calcific atherosclerosis of the aorta. Aorta is normal in course and caliber. Bones/joints: Calcifications in the left rotator cuff, favoring chronic calcific tendinopathy. Mild multilevel degenerative changes of the spine. No acute skeletal abnormality or aggressive osseous lesion. Soft tissues: No acute soft tissue findings. PROCEDURE INFORMATION: Exam: CT Abdomen And Pelvis Without Contrast Exam date and time: 07/07/2024 2:40 PM Age: 68 years old Clinical indication: Condition or disease; Other: Lung nodules; Lung condition and disease; Pulmonary nodule, solitary; Primary cancer: Renal; Prior surgery; Surgery date: 6+ months; Surgery type: Bilat hips, left kidney; Additional info: Lung nodules, kidney cancer TECHNIQUE: Imaging protocol: Computed tomography of the abdomen and pelvis without contrast. Radiation optimization: All CT scans at this facility use at least one of these dose optimization techniques: automated exposure control; mA and/or kV adjustment per patient size (includes targeted exams where dose is matched to clinical indication); or iterative reconstruction. COMPARISON: [place] [id number] 01/05/2024 1:35 PM RADIATION DOSE METRICS: Total DLP (mGy-cm): 924.54 FINDINGS: Limitations: Limited evaluation for metastatic disease in the solid organs, due to lack of intravenous contrast. Limited evaluation of the pelvis due to significant streak artifact from bilateral hip arthroplasties, which is slightly improved by reconstructive algorithms. Liver: The liver is normal. Gallbladder and biliary ducts: Single calcified gallstone is present, measuring 5 mm. The gallbladder is otherwise unremarkable. There is no evidence of biliary ductal dilation. Pancreas: The pancreas is normal. Spleen: The spleen demonstrates punctate calcifications, consistent with remote granulomatous organism exposure. The spleen is otherwise unremarkable. Adrenal glands: Adrenal glands are normal. Kidneys and ureters: There are small benign right kidney parapelvic cysts. The right kidney is otherwise unremarkable. The right ureter is normal. Left nephrectomy without evidence of disease recurrence at the surgical bed. Stomach and bowel: No bowel obstruction or significant bowel wall thickening. Mild constipation. The stomach is normal. Duodenum is unremarkable. Appendix: A normal appendix is identified. Intraperitoneal space: There is no evidence of free intraperitoneal or pelvic fluid. No intraperitoneal fluid collections. There is no free intraperitoneal air. Vasculature: Moderate atherosclerotic calcification of the arterial vasculature. No aortic aneurysms. Lymph nodes: There is no evidence of lymphadenopathy. Urinary bladder: The bladder is normal. Reproductive: The prostate demonstrates nonspecific parenchymal calcifications. The prostate demonstrates mild nonspecific enlargement. The seminal vesicles are normal. Bones/joints: Bilateral hip arthroplasties. No evidence of hardware complications. Specifically, no evidence for hardware loosening or periprosthetic fractures. Moderate multilevel degenerative changes of the spine. No acute skeletal abnormality or aggressive osseous lesion. Soft tissues: No acute soft tissue findings. CT/[place] [id number] IMPRESSION: No evidence for thoracic metastasis. IMPRESSION: No disease recurrence or metastasis, within the limits of this noncontrast examination. COMMENTS: Consistent with the [employer]'s Incidental Findings Committee white paper (J Am Jona Radiol 2018): Any incidental renal lesion less than 1 cm or classified as too small to characterize, or any incidental cystic renal lesion characterized as simple-appearing, is likely benign. No follow-up imaging is recommended for these lesions per consensus recommendations based on imaging criteria.
[2024-07-07] MEDS: iohexol 350 mg/mL 500 mL Btl (per mL) PO (13:36)
== END 2024-07-07 13:20 | disposition home or self-care (01) ==
LOC: RAD 13:22
PROVIDERS: PCP Internal Medicine; Visit Provider Internal Medicine
DX: R31.0 Gross hematuria (principal); C64.2 Malignant neoplasm of left kidney, except renal pelvis; Z98.890 Other specified postprocedural states; J84.10 Pulmonary fibrosis, unspecified; J98.4 Other disorders of lung; R59.0 Localized enlarged lymph nodes; I35.8 Other nonrheumatic aortic valve disorders; I70.0 Atherosclerosis of aorta; R93.5 Abnormal findings on diagnostic imaging of other abdominal regions, including retroperitoneum; I25.10 Atherosclerotic heart disease of native coronary artery without angina pectoris; R93.6 Abnormal findings on diagnostic imaging of limbs; M47.899 Other spondylosis, site unspecified; K80.20 Calculus of gallbladder without cholecystitis without obstruction; D73.89 Other diseases of spleen; N28.1 Cyst of kidney, acquired; K59.00 Constipation, unspecified; I70.8 Atherosclerosis of other arteries; N40.0 Benign prostatic hyperplasia without lower urinary tract symptoms; R93.89 Abnormal findings on diagnostic imaging of other specified body structures
CPT/HCPCS: 71250; 74176